=== PATIENT | female | born 1935 | race Caucasian/White ===

== ENCOUNTER 2019-06-06 13:23 | Outpatient (CLI) | payer MEDICARE, SELFPAY ==
--- NOTE | 2019-06-06 | ECG_ITS ---
Measurements Intervals [place] Rate: 62 P: 53 CA: 173 QRS: 29 QRSD: 97 T: 35 QT: 398 QTc: 407 Interpretive Statements SINUS RHYTHM BORDERLINE T WAVE ABNORMALITY- ANTERIOR LEADS BORDERLINE ECG Electronically Signed On 06-06-2019 15:58:43 CDT by Lauro Llanes D.O.
== END 2019-06-06 13:24 | disposition home or self-care (01) ==
DX: E05.90 Thyrotoxicosis, unspecified without thyrotoxic crisis or storm (principal); R94.31 Abnormal electrocardiogram [ECG] [EKG]
CPT/HCPCS: 93005

== ENCOUNTER 2020-02-27 10:39 | Outpatient (NON) | payer MEDICARE, SELFPAY ==
[2020-02-28 13:30] LABS: SARS-CoV-2 RNA PCR Positive
== END 2020-02-27 10:40 ==
DX: U07.1 COVID-19 (principal)
CPT/HCPCS: 87635; C9803; U0003